=== PATIENT | male | born 1985 | race Caucasian/White ===

== ENCOUNTER 2023-05-06 09:31 | Inpatient (IN) ==
[2023-05-06 10:31] LABS: Appearance Urine Clear (Clear); Bacteria Urine Automated Negative (Negative); Bilirubin Urine Negative (Negative); Blood Urine 1+ (Negative); Color Urine Yellow; Glucose Urine UA 3+ (Negative); Ketones Urine 4+ (Negative); Leukocyte Esterase Urine Negative (Negative); Nitrite Urine Negative (Negative); Protein Urine 2+ (Negative); RBC Urine Automated 0-4 /hpf (0-4); Specific Gravity Urine 1.031 (1.000-1.030); Urobilinogen Urine Negative (Negative); WBC Urine Automated 0 /hpf (0-5)
[2023-05-06 10:31] LABS: Basophils # (auto) 0.04 K/uL (0-0.2); Basophils % (auto) 0.2 %; Hematocrit (blood only) 51.8 % (42.0-52.0); Hemoglobin 18.4 g/dl (14.0-18.0); Immature Granulocytes # (auto) 0.31 K/uL (0.01-0.20); Immature Granulocytes % (auto) 1.5 %; Lymphocytes # (auto) 1.54 K/uL (1.2-3.4); Lymphocytes % (auto) 7.6 %; Mean Corpuscular Hemoglobin 31.2 pg (25.0-34.0); Mean Corpuscular Hgb Conc 35.5 g/dL (32.0-36.0); Mean Corpuscular Volume 87.8 fL (80.0-100.0); Mean Platelet Volume 10.3 fL (9.4-12.4); Monocytes # (auto) 0.83 K/uL (0.11-0.59); Monocytes % (auto) 4.1 %; Neutrophils # (auto) 17.66 K/uL (1.40-6.50); Neutrophils % (auto) 86.6 %; Platelet Count 333 K/uL (130-400); RDW Coefficient of Variation 12.6 % (11.5-14.5); RDW Standard Deviation 40.3 fL (36.4-46.3); White Blood Count 20.38 K/ul (4.8-10.8)
[2023-05-06] MEDS ORDERED: ONDANSETRON INJ 2 MG/ML 2 ML VIAL IV STA (10:37)
[2023-05-06] MEDS ORDERED: SODIUM CHLORIDE 0.9% 1000ML 2,000 ML IV ONE (10:37)
--- NOTE | 2023-05-06 10:43 | Emergency Department Note ---
History of Present Illness General Chief complaint: Vomiting Stated complaint: VOMITING BLOOD Time Seen by Provider: 05/06/23 10:29 Source: patient, RN notes reviewed, old records reviewed and friends (Friend who is at the bedside) Mode of arrival: ambulatory Limitations: no limitations History of Present Illness Maximum Pain Intensity: 8 This patient is a 37-year-old male has history of type 2 diabetes comes in after having vomiting since last night. He started on Ozempic recently got his first shot and he thinks it could be related to that he started vomiting overnight he said initially it looked okay but now it looks like coffee grounds its black when he is a stool as well. He has no lightheadedness or dizziness he has some mild epigastric pain no headache neck pain or stiffness. No fall or trauma no chest pain no fever no back pain. He Checked his blood sugar at home was 101 we checked it here is 221. No new foods no sick contacts. He says he has been unable to eat much. Home Medications Medication Instructions Recorded Confirmed Type blood sugar diagnostic (FreeStyle #100 ea 04/24/23 04/24/23 Rx Test strips) blood-glucose meter #1 ea 04/24/23 04/24/23 Rx lancets 28 gauge (FreeStyle #100 ea 04/24/23 04/24/23 Rx Lancets) metformin 500 mg tablet,extended 500 mg PO BID #60 tabs 04/24/23 05/06/23 Rx release 24 hr atorvastatin 20 mg tablet 20 mg PO QPM #90 tabs 04/25/23 05/06/23 Rx empagliflozin 10 mg tablet 10 mg PO DAILY #30 tabs 04/25/23 05/06/23 Rx (Jardiance) lisinopril 5 mg tablet 5 mg PO DAILY #30 tabs 04/25/23 05/06/23 Rx semaglutide 0.25 mg or 0.5 mg (2 0.25 mg subcut .Sundays05/06/23 05/06/23 History mg/3 mL) subcutaneous pen injector (Ozempic) Allergies Allergy/AdvReac Type Severity Reaction Status Date / Time No Known Allergies Allergy Mild Unverified 05/06/23 13:28 Past Med/Surg History Medical History Psoriasis Type 2 diabetes mellitus Surgical History History of wisdom tooth extraction Family History Denies family history of Ovarian cancer Prostate cancer Myocardial infarction Breast cancer Colorectal cancer Social History Smoking Status: Former smoker Tobacco Type: Cigarettes Age Started Using Tobacco: 16; Age Quit Using Tobacco: 28; packs per day: 1.5; Second Hand Exposure: No; Do You Dip or Chew Tobacco: No; Hx Alcohol Use: Yes Alcohol Intake Frequency: Monthly or Less Hx Substance Use: No Preferred Language: Indonesian Communication Ability: Effective Visual Impairment: No Limitations Hearing Ability: Normal Beliefs That Will Affect Care: None marital status: Current Living Situation: Family Current Living Situation Comment: Lives at home with and one child. 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 Feels Safe at Home: Yes Childhood Exposure to Second-Hand Smoke: Yes caffeine: Yes (Energy drinks - 1 per day.) during the past year weight has: remained stable Dental Care, Regularly: No Physical Activity Frequency: Daily Seatbelt Use: always Sunscreen Use: No Review of Systems A total of 10 systems reviewed and were otherwise negative Physical Exam Vital Signs Vital Signs - 24 hr 05/06/23 09:42 05/06/23 11:21 05/06/23 12:31 Temperature 36.2 C L Temperature Source Temporal Artery Scan Pulse Rate 124 H 105 H Pulse Rate [Apical] 103 H Pulse Rhythm [Apical] Regular Pulse Strength [Apical] Normal Respiratory Rate 20 16 Respiratory Effort / Characteristics Non-Labored Non-Labored Spontaneous Respiratory Depth Normal Normal Respiratory Pattern Regular Blood Pressure 138/81 Blood Pressure [Left Arm] 120/90 Blood Pressure Mean 100 Blood Pressure Mean [Left Arm] 100 Blood Pressure Position [Left Arm] Lying Pulse Oximetry 99 99 Oxygen Delivery Method Room Air Room Air Sepsis Recent Fever Within 48 Hours No Sepsis New/Unexplained Change in Mental Status N/A Sepsis Action Taken by Nursing No Action Required General: Well developed well nourished younger male who appears mildly ill but in no acute distress, breathing comfortably on room air. Normal speech HEENT: Normal cephalic atraumatic. Pupils are equal round and reactive to light. Extraocular movements are intact. Oropharynx is pink with moist mucous membranes. No swelling of the mouth lips or tongue. Neck: Supple with a midline trachea. No meningeal signs or stiffness, no JVD or bruits. No Stridor. Chest: Clear to auscultation bilaterally. No wheezes or rhonchi. No increased work of breathing. Heart: Regular rate and rhythm without murmurs or gallops. Abdomen: Soft, mildly tender in the epigastric area, nondistended without raina ound guarding or rigidity. Extremities: No cyanosis clubbing or edema. No calf tenderness or assymetry Spine/Back. Non tender to palpation. No CVA tenderness Skin: Good turgor without rashes. Neurologic exam: Cranial nerves two through 12 are intact. Motor and sensation are intact and symmetrical throughout. Course Administered Medications Pantoprazole Sodium 40 mg/ (Dextrose) 100 mls @ 20 mls/hr IV Q5H YOGESH Stop: 06/05/23 11:29 Last Admin: 05/06/23 11:41 Dose: 8 mg/hr, 20 mls/hr Documented By: HERMAN Discontinued Medications Sodium Chloride (Nss 1000ml) 2,000 mls @ 999 mls/hr IV .Q2H1M ONE Stop: 05/06/23 12:37 Last Infusion: 05/06/23 12:38 Dose: 0 mls/hr Documented By: Admin: 05/06/23 10:51 Dose: 999 mls/hr Documented By: DARRYN Pantoprazole Sodium (Protonix Bolus/Drip) 0 mls @ 1 mls/hr IV ONE STA Stop: 05/06/23 11:12 Last Admin: 05/06/23 11:26 Dose: 1 mls/hr Documented By: RITO Pantoprazole Sodium 80 mg/ (Dextrose) 120 mls @ 400 mls/hr IV NOW ONE Stop: 05/06/23 11:28 Last Infusion: 05/06/23 11:47 Dose: 0 mls/hr Documented By: Admin: 05/06/23 11:26 Dose: 400 mls/hr Documented By: RITO Lactated Ringer's (Lr) 1,000 mls @ 999 mls/hr IV .Q1H1M ONE Stop: 05/06/23 14:33 Last Admin: 05/06/23 14:17 Dose: 999 mls/hr Documented By: HERMAN Ondansetron HCl (Ondansetron Inj 2 Mg/Ml 2 Ml Vial) 4 mg IV NOW STA Stop: 05/06/23 10:38 Last Admin: 05/06/23 10:51 Dose: 4 mg Documented By: DARRYN Critical Care Time Critical Care Time: Yes Total Critical Care Time: 40 Due to the patient's need for frequent reassessment multiple IV medications and fluids, multiple metabolic abnormalities, consultations, I have personally spent greater than 40 minutes of critical care time in the direct management of this patient. This includes bedside care, interpretation of diagnostic studies, and testing, discussion with consultants, patient, and family members, and other required patient management activities. This 40 minutes is in excess of all separately billable procedures. Medical Decision Making Differential Diagnosis Dehydration, medication side effect, diabetic complications/emergency/DKA, GI bleed, gastritis, electrolyte or metabolic abnormality, infection, sepsis, cardiac disease, foodborne illness, viral illness Medical Records Attestation: I reviewed the patient's medical records. Home Medications Current Medication List: was personally reviewed by me Laboratory Data Attestation: I reviewed the patient's lab results. 05/06/23 10:00 05/06/23 10:00 Lab Results 05/06/23 05/06/23 05/06/23 Range/Units 10:00 10:00 10:06 WBC 20.38 H (4.8-10.8) K/ul RBC 5.90 (4.70-6.10) M/uL Hgb 18.4 H (14.0-18.0) g/dl Hct 51.8 (42.0-52.0) % MCV 87.8 (80.0-100.0) fL MCH 31.2 (25.0-34.0) pg MCHC 35.5 (32.0-36.0) g/dL RDW Std Deviation 40.3 (36.4-46.3) fL RDW Coeff of Queenie 12.6 (11.5-14.5) % Plt Count 333 (130-400) K/uL MPV 10.3 (9.4-12.4) fL Immature Gran % (Auto) 1.5 % Neut % (Auto) 86.6 % Lymph % (Auto) 7.6 % Perkins % (Auto) 4.1 % Eos % (Auto) 0.0 % Baso % (Auto) 0.2 % Neut # (Auto) 17.66 H (1.40-6.50) K/uL Lymph # (Auto) 1.54 (1.2-3.4) K/uL Perkins # (Auto) 0.83 H (0.11-0.59) K/uL Eos # (Auto) 0.00 (0-0.50) K/uL Baso # (Auto) 0.04 (0-0.2) K/uL Immature Gran # (Auto) 0.31 H (0.01-0.20) K/uL VBG pH (7.36-7.41) VBG pCO2 (38-50) mmHg VBG pO2 mmHg VBG HCO3 mmol/L VBG O2 Saturation % VBG Base Excess mEq/L Sodium TNP Potassium TNP Chloride 93 L (98-107) mmol/L Carbon Dioxide 11 L (21-32) mmol/L Anion Gap TNP BUN 36 H (6-23) mg/dl Creatinine 1.71 H (0.6-1.4) mg/dl Est Cr Clr Drug Dosing 54.1 ml/min Est GFR ( Amer) 57.2 ml/min Est GFR (Non-Af Amer) 49.3 ml/min BUN/Creatinine Ratio 21.1 H (10-20) Glucose 272 H (70-99(Fasting)) mg/dl POC Glucose 277 H (70-99) mg/dl Lactate (0.4-2.0) mmol/L Calcium 9.6 (8.6-10.3) mg/dl Magnesium (1.7-2.4) mg/dl Total Bilirubin 0.7 (0.2-1.0) mg/dl AST TNP ALT 43 (7-52) U/L Alkaline Phosphatase 95 (34-104) U/L Troponin I High Sens (0-20) pg/ml Total Protein 9.6 H (6.0-8.3) gm/dl Albumin 5.3 H (3.4-5.0) gm/dl Globulin 4.3 H (2.5-4.0) gm/dl Albumin/Globulin Ratio 1.2 (0.9-2) Lipase 62 (11-82) U/L Urine Color Urine Appearance (Clear) Urine pH (4.5-7.5) Ur Specific [place] (1.000-1.030) Urine Protein (Negative) Urine Glucose (UA) (Negative) Urine Ketones (Negative) Urine Blood (Negative) Urine Nitrite (Negative) Urine Bilirubin (Negative) Urine Urobilinogen (Negative) Ur Leukocyte Esterase (Negative) Urine WBC (Auto) (0-5) /hpf Urine RBC (Auto) (0-4) /hpf U Hyaline Cast (Auto) (0-5) /lpf U Epithel Cells (Auto) (0-5) /lpf Urine Bacteria (Auto) (Negative) SARS-CoV-2, RNA, NAAT (NEGATIVE) Blood Type Antibody Screen 05/06/23 05/06/23 05/06/23 Range/Units 11:31 11:31 11:31 WBC (4.8-10.8) K/ul RBC (4.70-6.10) M/uL Hgb (14.0-18.0) g/dl Hct (42.0-52.0) % MCV (80.0-100.0) fL MCH (25.0-34.0) pg MCHC (32.0-36.0) g/dL RDW Std Deviation (36.4-46.3) fL RDW Coeff of Queenie (11.5-14.5) % Plt Count (130-400) K/uL MPV (9.4-12.4) fL Immature Gran % (Auto) % Neut % (Auto) % Lymph % (Auto) % Perkins % (Auto) % Eos % (Auto) % Baso % (Auto) % Neut # (Auto) (1.40-6.50) K/uL Lymph # (Auto) (1.2-3.4) K/uL Perkins # (Auto) (0.11-0.59) K/uL Eos # (Auto) (0-0.50) K/uL Baso # (Auto) (0-0.2) K/uL Immature Gran # (Auto) (0.01-0.20) K/uL VBG pH (7.36-7.41) VBG pCO2 (38-50) mmHg VBG pO2 mmHg VBG HCO3 mmol/L VBG O2 Saturation % VBG Base Excess mEq/L Sodium 132 L Potassium 4.4 Chloride (98-107) mmol/L Carbon Dioxide (21-32) mmol/L Anion Gap BUN (6-23) mg/dl Creatinine (0.6-1.4) mg/dl Est Cr Clr Drug Dosing ml/min Est GFR ( Amer) ml/min Est GFR (Non-Af Amer) ml/min BUN/Creatinine Ratio (10-20) Glucose (70-99(Fasting)) mg/dl POC Glucose (70-99) mg/dl Lactate (0.4-2.0) mmol/L Calcium (8.6-10.3) mg/dl Magnesium (1.7-2.4) mg/dl Total Bilirubin (0.2-1.0) mg/dl AST 18 ALT (7-52) U/L Alkaline Phosphatase (34-104) U/L Troponin I High Sens 5.6 (0-20) pg/ml Total Protein (6.0-8.3) gm/dl Albumin (3.4-5.0) gm/dl Globulin (2.5-4.0) gm/dl Albumin/Globulin Ratio (0.9-2) Lipase (11-82) U/L Urine Color Urine Appearance (Clear) Urine pH (4.5-7.5) Ur Specific [place] (1.000-1.030) Urine Protein (Negative) Urine Glucose (UA) (Negative) Urine Ketones (Negative) Urine Blood (Negative) Urine Nitrite (Negative) Urine Bilirubin (Negative) Urine Urobilinogen (Negative) Ur Leukocyte Esterase (Negative) Urine WBC (Auto) (0-5) /hpf Urine RBC (Auto) (0-4) /hpf U Hyaline Cast (Auto) (0-5) /lpf U Epithel Cells (Auto) (0-5) /lpf Urine Bacteria (Auto) (Negative) SARS-CoV-2, RNA, NAAT (NEGATIVE) Blood Type A Positive Antibody Screen NEGATIVE 05/06/23 05/06/23 05/06/23 Range/Units 14:05 14:05 14:05 WBC (4.8-10.8) K/ul RBC (4.70-6.10) M/uL Hgb (14.0-18.0) g/dl Hct (42.0-52.0) % MCV (80.0-100.0) fL MCH (25.0-34.0) pg MCHC (32.0-36.0) g/dL RDW Std Deviation (36.4-46.3) fL RDW Coeff of Queenie (11.5-14.5) % Plt Count (130-400) K/uL MPV (9.4-12.4) fL Immature Gran % (Auto) % Neut % (Auto) % Lymph % (Auto) % Perkins % (Auto) % Eos % (Auto) % Baso % (Auto) % Neut # (Auto) (1.40-6.50) K/uL Lymph # (Auto) (1.2-3.4) K/uL Perkins # (Auto) (0.11-0.59) K/uL Eos # (Auto) (0-0.50) K/uL Baso # (Auto) (0-0.2) K/uL Immature Gran # (Auto) (0.01-0.20) K/uL VBG pH 7.18 L (7.36-7.41) VBG pCO2 38 (38-50) mmHg VBG pO2 29 mmHg VBG HCO3 14 mmol/L VBG O2 Saturation < 60.0 % VBG Base Excess -13.4 mEq/L Sodium 132 L Potassium 4.7 Chloride 103 (98-107) mmol/L Carbon Dioxide 13 L (21-32) mmol/L Anion Gap 16 H BUN 34 H (6-23) mg/dl Creatinine 1.24 D (0.6-1.4) mg/dl Est Cr Clr Drug Dosing 74.6 ml/min Est GFR ( Amer) 84.3 ml/min Est GFR (Non-Af Amer) 72.8 ml/min BUN/Creatinine Ratio 27.4 H (10-20) Glucose 182 H (70-99(Fasting)) mg/dl POC Glucose (70-99) mg/dl Lactate 2.1 H* (0.4-2.0) mmol/L Calcium 8.4 L (8.6-10.3) mg/dl Magnesium 2.2 (1.7-2.4) mg/dl Total Bilirubin (0.2-1.0) mg/dl AST ALT (7-52) U/L Alkaline Phosphatase (34-104) U/L Troponin I High Sens (0-20) pg/ml Total Protein (6.0-8.3) gm/dl Albumin (3.4-5.0) gm/dl Globulin (2.5-4.0) gm/dl Albumin/Globulin Ratio (0.9-2) Lipase (11-82) U/L Urine Color Urine Appearance (Clear) Urine pH (4.5-7.5) Ur Specific [place] (1.000-1.030) Urine Protein (Negative) Urine Glucose (UA) (Negative) Urine Ketones (Negative) Urine Blood (Negative) Urine Nitrite (Negative) Urine Bilirubin (Negative) Urine Urobilinogen (Negative) Ur Leukocyte Esterase (Negative) Urine WBC (Auto) (0-5) /hpf Urine RBC (Auto) (0-4) /hpf U Hyaline Cast (Auto) (0-5) /lpf U Epithel Cells (Auto) (0-5) /lpf Urine Bacteria (Auto) (Negative) SARS-CoV-2, RNA, NAAT (NEGATIVE) Blood Type Antibody Screen 05/06/23 05/06/23 Range/Units Unknown Unknown WBC (4.8-10.8) K/ul RBC (4.70-6.10) M/uL Hgb (14.0-18.0) g/dl Hct (42.0-52.0) % MCV (80.0-100.0) fL MCH (25.0-34.0) pg MCHC (32.0-36.0) g/dL RDW Std Deviation (36.4-46.3) fL RDW Coeff of Queenie (11.5-14.5) % Plt Count (130-400) K/uL MPV (9.4-12.4) fL Immature Gran % (Auto) % Neut % (Auto) % Lymph % (Auto) % [place] % (Auto) % Eos % (Auto) % Baso % (Auto) % Neut # (Auto) (1.40-6.50) K/uL Lymph # (Auto) (1.2-3.4) K/uL [place] # (Auto) (0.11-0.59) K/uL Eos # (Auto) (0-0.50) K/uL Baso # (Auto) (0-0.2) K/uL Immature Gran # (Auto) (0.01-0.20) K/uL VBG pH (7.36-7.41) VBG pCO2 (38-50) mmHg VBG pO2 mmHg VBG HCO3 mmol/L VBG O2 Saturation % VBG Base Excess mEq/L Sodium Potassium Chloride (98-107) mmol/L Carbon Dioxide (21-32) mmol/L Anion Gap BUN (6-23) mg/dl Creatinine (0.6-1.4) mg/dl Est Cr Clr Drug Dosing ml/min Est GFR ( Amer) ml/min Est GFR (Non-Af Amer) ml/min BUN/Creatinine Ratio (10-20) Glucose (70-99(Fasting)) mg/dl POC Glucose (70-99) mg/dl Lactate (0.4-2.0) mmol/L Calcium (8.6-10.3) mg/dl Magnesium (1.7-2.4) mg/dl Total Bilirubin (0.2-1.0) mg/dl AST ALT (7-52) U/L Alkaline Phosphatase (34-104) U/L Troponin I High Sens (0-20) pg/ml Total Protein (6.0-8.3) gm/dl Albumin (3.4-5.0) gm/dl Globulin (2.5-4.0) gm/dl Albumin/Globulin Ratio (0.9-2) Lipase (11-82) U/L Urine Color Yellow Urine Appearance Clear (Clear) Urine pH 5.0 (4.5-7.5) Ur Specific [place] 1.031 H (1.000-1.030) Urine Protein 2+ H (Negative) Urine Glucose (UA) 3+ H (Negative) Urine Ketones 4+ H (Negative) Urine Blood 1+ H (Negative) Urine Nitrite Negative (Negative) Urine Bilirubin Negative (Negative) Urine Urobilinogen Negative (Negative) Ur Leukocyte Esterase Negative (Negative) Urine WBC (Auto) 0 (0-5) /hpf Urine RBC (Auto) 0-4 (0-4) /hpf U Hyaline Cast (Auto) 1-5 (0-5) /lpf U Epithel Cells (Auto) 5-10 H (0-5) /lpf Urine Bacteria (Auto) Negative (Negative) SARS-CoV-2, RNA, NAAT NEGATIVE (NEGATIVE) Blood Type Antibody Screen Imaging Data Attestation: I personally reviewed and interpreted this imaging study as follows: My Impression: Chest x-rayno acute infiltrate, failure, pneumothorax. No free air CT of the abdomen pelvisno obstruction or free air. Radiologist's Impression: Chest X-Ray 05/06/23 10:38 XR chest 1V portable HISTORY: epigastric pain COMPARISON: None. FINDINGS: The lungs are clear. Cardiac silhouette is normal in size. No pleural effusions. No pneumothorax. IMPRESSION: No acute process. ACT 112: Negative or not required by law. Electronically signed by: Catalino Bella M.D. 05/06/2023 11:00 AM Abdomen/Pelvis CT 05/06/23 11:[address] WITHOUT CONTRAST CT DOSE: 1072.37 mGy.cm HISTORY: emesis TECHNIQUE: Multiaxial CT images of the abdomen and pelvis were performed without contrast. A dose lowering technique was utilized adhering to the principles of ALARA. COMPARISON STUDY: None. FINDINGS: The lung bases are clear. No pneumoperitoneum. No pneumatosis. No acute fractures identified. There is mild to moderate circumferential thickening of the distal esophagus with mild paraesophageal edema. This suggests a nonspecific esophagitis. No pneumomediastinum identified. Hepatic steatosis. The gallbladder, spleen, adrenal glands, pancreas, and kidneys unremarkable. No hydronephrosis. Normal caliber abdominal aorta. No retroperitoneal lymphadenopathy. No pelvic lymphadenopathy or pelvic free fluid. Normal bladder. Suboptimal evaluation for bowel pathology due to the lack of intravenous and oral contrast. However, there is no definite thickening of the large and small bowel. No evidence for a bowel obstruction. Normal appendix. There is a linear density 1 cm density at the second portion of the duodenum best seen on images 111 through 116. This is indeterminate and could represent ingested contents or possibly a small linear metallic density. IMPRESSION: 1. [id number] circumferential thickening of the distal esophagus with mild paraesophageal edema. This suggests a nonspecific esophagitis. No extraluminal gas to suggest a perforation. 2. Hepatic steatosis. 3. No evidence for a bowel obstruction. 4. Normal appendix. 5. There is a linear density 1 cm density at the second portion of the duodenum as described above. This is indeterminate and could represent ingested contents or possibly a small linear metallic density. ACT 112: Negative or not required by law. Electronically signed by: Catalino Bella M.D. 05/06/2023 12:58 PM ECG Data Attestation: I personally reviewed and interpreted this ECG as follows: Indication: + vomiting Rate (beats per minute): 113 Rhythm: + sinus tachycardia ECG Intervals/blocks: + Normal QRS, + Normal QT and + Normal [place] ECG [place]: + Normal ECG ST segments: + Normal ST segments ECG Findings: no PACs or no PVCs Comparison ECG Date: no prior available MDM Narrative This patient is a type II diabetic comes in after an vomiting and diarrhea. His blood sugar was was 221 here so I do not think is likely acute diabetic emergency. He was started on Ozempic which may be causing his symptoms. IV a ccess was established and he was hydrated with 2 L IV normal saline bolus given Zofran 4 mg IV in the meantime blood work was obtained his initial hemoglobin is 18 so he is not low this could also be somewhat elevated due to dehydration. His white count is also elevated although he has no fever. I also gave him Protonix IV and bolus. His labs show a low CO2 and increased renal functions. His blood sugar is not significantly elevated however. Is possible there is a DKA component however I think it is mostly just dehydration. Has been retching. I suspect that he the Ozempic made him sick and then he had vomiting and got dehydrated. I did do a CAT scan given his elevated white count and he does have some irritation of his esophagus but no extraluminal air. With the IV fluids and the medications he seems to be doing quite a bit better. His abdomen remains benign without peritonitis. EKG does not show any ischemic changes I do not think this is likely cardiac. His hemoglobin is stable so far but he has been typed and crossed in the event he were to drop his hemoglobin or needed transfusion. I did consult Dr. Jones to see the patient in the ER for these measures and admission and further IV hydration and medications Continuous cardiac monitoring: An order was placed in EMR for continuous cardiac monitoring: Upon my evaluation patient was noted to be sinus tachycardia with a rate of 100 Impression & Plan Acute dehydration, Type 2 diabetes mellitus, Esophagitis, Acute upper GI bleed, Metabolic acidosis, Nausea vomiting and diarrhea, Lab test negative for COVID-19 virus Discharge Plan Visit Data Chief Complaint: Vomiting Stated Complaint: VOMITING BLOOD ED Provider: Nirmal Lau Discharge Problem: Acute dehydration, Type 2 diabetes mellitus, Esophagitis, Acute upper GI bleed, Metabolic acidosis, Nausea vomiting and diarrhea, Lab test negative for COVID-19 virus Discharge Instructions Interventions: ED Discharge Assessment Last Done: 05/06/23 14:57 Forms Stand Alone Forms: My [facility] Prescriptions Prescriptions: No Action Jardiance 10 mg tablet 10 mg PO DAILY Qty: 30 2RF atorvastatin 20 mg tablet 20 mg PO QPM Qty: 90 2RF lisinopril 5 mg tablet 5 mg PO DAILY Qty: 30 2RF metformin 500 mg tablet extended release 24 hr 500 mg PO BID Qty: 60 2RF (DME) lancets [FreeStyle Lancets] 28 gauge misc See Rx Instructions .ROUTE Qty: 100 0RF Rx Instructions: As directed (DME) blood-glucose meter Kit See Rx Instructions .ROUTE .MEDSUPPLY Qty: 1 0RF Rx Instructions: As directed daily and PRN (DME) FreeStyle Test Strip See Rx Instructions .Route Qty: 100 5RF Rx Instructions: As directed daily and PRN Ozempic 0.25 mg or 0.5 mg (2 mg/3 mL) pen injector 0.25 mg subcut .SUNDAYS Rx Instructions: 0.25 mg subcutaneously once every 7 days at any time of day. After 4 weeks increase to 0.5 mg subcutaneously once weekly. Referrals Referrals: Lance Shaikh CRNP [Primary Care Provider] -
[2023-05-06 10:57] LABS: Alanine Aminotransferase 43 U/L (7-52); Albumin Globulin Ratio 1.2 (0.9-2); Albumin Level 5.3 gm/dl (3.4-5.0); Alkaline Phosphatase 95 U/L (34-104); BUN Creatinine Ratio 21.1 (10-20); Bilirubin,Total 0.7 mg/dl (0.2-1.0); Blood Urea Nitrogen 36 mg/dl (6-23); Calcium 9.6 mg/dl (8.6-10.3); Carbon Dioxide 11 mmol/L (21-32); Chloride 93 mmol/L (98-107); Creatinine Clr Calc Pharmacy 54.1 ml/min; Est GFR (African American) 57.2 ml/min; Est GFR (Non-African American) 49.3 ml/min; Globulin 4.3 gm/dl (2.5-4.0); Glucose 272 mg/dl (70-99(Fasting)); Lipase 62 U/L (11-82); Total Protein 9.6 gm/dl (6.0-8.3)
--- NOTE | 2023-05-06 11:01 | XRay Report ---
XR chest 1V portable HISTORY: epigastric pain COMPARISON: None. FINDINGS: The lungs are clear. Cardiac silhouette is normal in size. No pleural effusions. No pneumot horax. IMPRESSION: No acute process. ACT 112: Negative or not required by law. Electronically signed by: Catalino Bella M.D. 05/06/2023 11:00 AM
[2023-05-06] MEDS ORDERED: PANTOPRAZOLE BOLUS/DRIP 1 EACH IV STA (11:11)
[2023-05-06] MEDS ORDERED: PANTOprazole 80 MG in DEXTROSE 5% 100 ML IV ONE (11:11)
[2023-05-06] MEDS: PANTOprazole 40 MG in DEXTROSE 5% 100 ML IV SCH ×3 (11:41→22:58)
[2023-05-06 12:01] LABS: Potassium 4.4 mmol/L (3.5-5.1)
--- NOTE | 2023-05-06 13:01 | CT Scan Report ---
ABDOMEN AND PELVIS CT WITHOUT CONTRAST CT DOSE: 1072.37 mGy.cm HISTORY: emesis TECHNIQUE: Multiaxial CT images of the abdomen and pelvis were performed without contrast. A dose lo wering technique was utilized adhering to the principles of ALARA. COMPARISON STUDY: None. FINDINGS: The lung bases are clear. No pneumoperitoneum. No pneumatosis. No acute fractures identifie d. There is mild to moderate circumferential thickening of the distal esophagus with mild paraesophag eal edema. This suggests a nonspecific esophagitis. No pneumomediastinum identified. Hepatic steatosi s. The gallbladder, spleen, adrenal glands, pancreas, and kidneys unremarkable. No hydronephrosis. No rmal caliber abdominal aorta. No retroperitoneal lymphadenopathy. No pelvic lymphadenopathy or pelvic free fluid. Normal bladder. Suboptimal evaluation for bowel pathology due to the lack of intravenous and oral contrast. However, there is no definite thickening of the large and small bowel. No evidenc e for a bowel obstruction. Normal appendix. There is a linear density 1 cm density at the second port ion of the duodenum best seen on images 111 through 116. This is indeterminate and could represent in gested contents or possibly a small linear metallic density. IMPRESSION: 1. [id number] circumferential thickening of the distal esophagus with mild paraesophageal edema . This suggests a nonspecific esophagitis. No extraluminal gas to suggest a perforation. 2. Hepatic steatosis. 3. No evidence for a bowel obstruction. 4. Normal appendix. 5. There is a linear density 1 cm density at the second portion of the duodenum as described above. T his is indeterminate and could represent ingested contents or possibly a small linear metallic densit y. ACT 112: Negative or not required by law. Electronically signed by: Catalino Bella M.D. 05/06/2023 12:58 PM
--- NOTE | 2023-05-06 13:32 | History & Physical Report ---
Date of Service May 06, 2023 Assessment & Plan (1) Diabetic ketoacidosis: Plan: Secondary to Jardiance +/- starvation ketosis, likely did not cause but making nausea and vomiting worse Initial anion gap (calculated with repeat labs) 28, albumin corrected 24.8, Bicarb 11 NSS 2L bolus given in ER, will give additional 1L LR now with repeat labs Start insulin IV drip with DKA aim 150-250, K 4.4, Start D5 with IV fluids once glucose < 250. Monitor BMP/Mg/PO/venous ph q4h (2) Nausea and vomiting: Plan: Suspect somewhat secondary to Ozempic initially although start multiple new medications at the same time. (3) Coffee ground emesis: Plan: Continue to monitor Hgb Iv pantoprazole 80mg bolus and drip (4) Esophagitis: Plan: IV pantoprazole as above (5) Psoriasis: (6) Hypertension: Plan: Stop lisinopril Plan VTE Prophylaxis - low risk Diet - NPO Disposition - admit to PCU Admission and Anticipated Discharge Date Admission Date: May 06, 2023 History of Present Illness Chief Complaint: Nausea, vomiting Primary Care Provider: BRODIE Head Valentino Vazquez is a 37 year old male who presents to the ER with nausea and vomiting. He reports falling off the wagon regarding his diabetes and general medical treatments. HbA1C 10.6 on April 24. He was previous diagnosed with diabetes and treated with metformin. Last weekend he started back on all his current medications at the same time. He took Ozempic for the first time on Monday. On Monday he started having nausea and vomiting and hasn't been able to keep much else down since then. Now having coffee ground vomiting and bile therefore decided to come to the ER today. He denies any abdominal pain or change in bowel habits. He continued to take Farxiga up until today. Allergies Allergy/AdvReac Type Severity Reaction Status Date / Time No Known Allergies Allergy Mild Unverified 05/06/23 13:28 Home Medications Medication Instructions Recorded Confirmed Type blood sugar diagnostic (FreeStyle #100 ea 04/24/23 04/24/23 Rx Test strips) blood-glucose meter #1 ea 04/24/23 04/24/23 Rx lancets 28 gauge (FreeStyle #100 ea 06/19/23 06/19/23 Rx Lancets) metformin 500 mg tablet,extended 500 mg PO BID #60 tabs 04/24/23 05/06/23 Rx release 24 hr atorvastatin 20 mg tablet 20 mg PO QPM #90 tabs 04/25/23 05/06/23 Rx empagliflozin 10 mg tablet 10 mg PO DAILY #30 tabs 04/25/23 05/06/23 Rx (Jardiance) lisinopril 5 mg tablet 5 mg PO DAILY #30 tabs 04/25/23 05/06/23 Rx semaglutide 0.25 mg or 0.5 mg (2 0.25 mg subcut .Sundays05/06/23 05/06/23 History mg/3 mL) subcutaneous pen injector (Ozempic) Past Med/Surg History Medical History (Updated 05/07/23 @ 07:21 by Troy Jones MD) Hypertension Psoriasis Type 2 diabetes mellitus Surgical History History of wisdom tooth extraction Family History Denies family history of Ovarian cancer Prostate cancer Myocardial infarction Breast cancer Colorectal cancer Social History Smoking Status: Former smoker Tobacco Type: Cigarettes Age Started Using Tobacco: 16; Age Quit Using Tobacco: 28; packs per day: 1.5; Second Hand Exposure: No; Do You Dip or Chew Tobacco: No; Tobacco Cessation Education Requested by Patient: No Hx Alcohol Use: No Hx Substance Use: No Preferred Language: Bengali Communication Ability: Effective Visual Impairment: No Limitations Hearing Ability: Normal Car [place]ter Required: No Beliefs That Will Affect Care: None marital status: Current Living Situation: Spouse Current Living Situation Comment: Lives at home with and one child. 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 Feels Safe at Home: Yes Safety Concerns: Feels Safe At This Time Childhood Exposure to Second-Hand Smoke: Yes caffeine: Yes (Energy drinks - 1 per day.) during the past year weight has: remained stable Dental Care, Regularly: No Physical Activity Frequency: Daily Seatbelt Use: always Sunscreen Use: No Assistive Devices: None Review of Systems Review of Systems: All systems reviewed & are unremarkable except as noted in HPI & below Physical Exam Constitutional: well developed, well nourished and + acute distress (Nausea) Eyes: PERRL, conjunctivae normal, anicteric sclerae Respiratory: normal respiratory effort, lungs clear to auscultation Cardiovascular: Rate/Rhythm: regular rhythm and + tachycardic Heart Sounds: no murmur Extremities: normal capillary refill; no calf tenderness and no pedal edema Gastrointestinal (Abdomen): normal bowel sounds, soft, nontender, no hepatosplenomegaly Musculoskeletal: no cyanosis or clubbing, extremities motor strength 5/5 Skin: no rashes, warm and dry Neurologic: moves all extremities and awake; not confused Psychiatric: A+Ox3, euthymic affect Genitourinary: no CVA tenderness Results & Data Results & Data Vital Signs (Past 12 Hours) Vital Signs Temp Pulse Pulse Resp BP BP Pulse Ox 05/06/23 12:31 103 H 16 120/90 99 05/06/23 11:21 105 H 05/06/23 09:42 36.2 C L 124 H 20 138/81 99 O2 Del Method 05/06/23 12:31 Room Air 05/06/23 11:21 05/06/23 09:42 Room Air Laboratory Results Abnormal lab results 05/06/23 05/06/23 05/06/23 Range/Units 10:00 10:00 10:06 WBC 20.38 H (4.8-10.8) K/ul Hgb 18.4 H (14.0-18.0) g/dl Neut # (Auto) 17.66 H (1.40-6.50) K/uL [place] # (Auto) 0.83 H (0.11-0.59) K/uL Immature Gran # (Auto) 0.31 H (0.01-0.20) K/uL Sodium (136-145) mmol/L Chloride 93 L (98-107) mmol/L Carbon Dioxide 11 L (21-32) mmol/L BUN 36 H (6-23) mg/dl Creatinine 1.71 H (0.6-1.4) mg/dl BUN/Creatinine Ratio 21.1 H (10-20) Glucose 272 H (70-99(Fasting)) mg/dl POC Glucose 277 H (70-99) mg/dl Total Protein 9.6 H (6.0-8.3) gm/dl Albumin 5.3 H (3.4-5.0) gm/dl Globulin 4.3 H (2.5-4.0) gm/dl Ur Specific [place] (1.000-1.030) Urine Protein (Negative) Urine Glucose (UA) (Negative) Urine Ketones (Negative) Urine Blood (Negative) U Epithel Cells (Auto) (0-5) /lpf 05/06/23 05/06/23 Range/Units 11:31 Unknown WBC (4.8-10.8) K/ul Hgb (14.0-18.0) g/dl Neut # (Auto) (1.40-6.50) K/uL [place] # (Auto) (0.11-0.59) K/uL Immature Gran # (Auto) (0.01-0.20) K/uL Sodium 132 L (136-145) mmol/L Chloride (98-107) mmol/L Carbon Dioxide (21-32) mmol/L BUN (6-23) mg/dl Creatinine (0.6-1.4) mg/dl BUN/Creatinine Ratio (10-20) Glucose (70-99(Fasting)) mg/dl POC Glucose (70-99) mg/dl Total Protein (6.0-8.3) gm/dl Albumin (3.4-5.0) gm/dl Globulin (2.5-4.0) gm/dl Ur Specific [place] 1.031 H (1.000-1.030) Urine Protein 2+ H (Negative) Urine Glucose (UA) 3+ H (Negative) Urine Ketones 4+ H (Negative) Urine Blood 1+ H (Negative) U Epithel Cells (Auto) 5-10 H (0-5) /lpf Diagnostic Findings XR chest 1V portable HISTORY: epigastric pain COMPARISON: None. FINDINGS: The lungs are clear. Cardiac silhouette is normal in size. No pleural effusions. No pneumothorax. IMPRESSION: No acute process. ABDOMEN AND PELVIS CT WITHOUT CONTRAST CT DOSE: 1072.37 mGy.cm HISTORY: emesis TECHNIQUE: Multiaxial CT images of the abdomen and pelvis were performed without contrast. A dose lowering technique was utilized adhering to the principles of ALARA. COMPARISON STUDY: None. FINDINGS: The lung bases are clear. No pneumoperitoneum. No pneumatosis. No acute fractures identified. There is mild to moderate circumferential thickening of the distal esophagus with mild paraesophageal edema. This suggests a nonspecific esophagitis. No pneumomediastinum identified. Hepatic steatosis. The gallbladder, spleen, adrenal glands, pancreas, and kidneys unremarkable. No hydronephrosis. Normal caliber abdominal aorta. No retroperitoneal lymphadenopathy. No pelvic lymphadenopathy or pelvic free fluid. Normal bladder. Suboptimal evaluation for bowel pathology due to the lack of intravenous and oral contrast. However, there is no definite thickening of the large and small bowel. No evidence for a bowel obstruction. Normal appendix. There is a linear density 1 cm density at the second portion of the duodenum best seen on images 111 through 116. This is indeterminate and could represent ingested contents or possibly a small linear metallic density. IMPRESSION: 1. Bcmn-by-mtwllniz circumferential thickening of the distal esophagus with mild paraesophageal edema. This suggests a nonspecific esophagitis. No extraluminal gas to suggest a perforation. 2. Hepatic steatosis. 3. No evidence for a bowel obstruction. 4. Normal appendix. 5. There is a linear density 1 cm density at the second portion of the duodenum as described above. This is indeterminate and could represent ingested contents or possibly a small linear metallic density. Medications Administered ER Medications Given: NSS 2L bolus Ondansetron 4mg IV Pantoprazole 80mg bolus bolus and drip ECG Rate (beats per minute): 113 Rhythm: sinus tachycardia Findings: no acute ischemic change Comparison ECG Date: no prior available Code Status & VTE Plan Code Status Full VTE Prophylaxis Plan VTE Prophylaxis will be ordered: Yes Critical Care Time Critical Care Time: Yes Total Critical Care Time: 35 PG Care Time/CCT Total # of Minutes Spent Total Time Spent with Patient: Total time spent is greater than 50% in coordination of care (as documented) at patient's floor/unit and/or counseling patient: Critical Care Time: Yes Total Critical Care Time: 35 Coding Level of Care Code 91097 INT INP/OBS CARE 3/75MIN Diagnoses Diabetic ketoacidosis E11.10 Nausea and vomiting R11.2 Coffee ground emesis K92.0 Esophagitis K20.90 Psoriasis L40.9 Hypertension I10 Additional Codes Critical Care Time - Critical Care Time: Yes ([id number])
[2023-05-06] MEDS ORDERED: LACTATED RINGER'S 1,000 ML IV ONE (13:33)
[2023-05-06] MEDS ORDERED: PHARMACY GLYCEMIC MGMT CONSULT PRN (14:14)
[2023-05-06] MEDS ORDERED: STAT IV Infusion **Titration per Protocol STA (14:14)
[2023-05-06] MEDS ORDERED: DKA GOAL RANGE 150-250 mg/dl ONE (14:14)
[2023-05-06 14:22] LABS: Base Excess VBG -13.4 mEq/L; HCO3 VBG 14 mmol/L; Oxygen Saturation VBG < 60.0 %; PCO2 VBG 38 mmHg (38-50); PO2 VBG 29 mmHg; pH VBG 7.18 (7.36-7.41)
[2023-05-06 14:39] LABS: BUN Creatinine Ratio 27.4 (10-20); Calcium 8.4 mg/dl (8.6-10.3); Creatinine Clr Calc Pharmacy 74.6 ml/min; Est GFR (African American) 84.3 ml/min; Est GFR (Non-African American) 72.8 ml/min; Magnesium 2.2 mg/dl (1.7-2.4); Potassium 4.7 mmol/L (3.5-5.1)
[2023-05-06] MEDS ORDERED: INSULIN REGULAR 250 UNITS in SODIUM CHLORIDE 0.9% 247.5 ML IV SCH (15:00)
[2023-05-06] MEDS ORDERED: INSULIN HUMAN REGULAR PER UNIT 8 UNITS in SYRINGE 7.92 ML IV ONE (15:00)
[2023-05-06] MEDS ORDERED: PENDING D5 1/2NS+20mEq KCL IVF SCH (16:00)
[2023-05-06] MEDS ORDERED: PENDING 1/2NSS+20mEq KCL IVF SCH (16:00)
[2023-05-06] MEDS: D5W AND 1/2NSS + 20MEQ KCL 20 MEQ/1,000 ML BAG IV SCH ×2 (16:14→21:32)
[2023-05-06] MEDS: INSULIN ASPART PER UNIT CHARGE SC SCH ×2 (16:34→20:48)
[2023-05-06 18:38] LABS: BUN Creatinine Ratio 25.6 (10-20); Calcium 8.4 mg/dl (8.6-10.3); Creatinine Clr Calc Pharmacy 79.1 ml/min; Est GFR (African American) 90.5 ml/min; Est GFR (Non-African American) 78.1 ml/min; Magnesium 2.3 mg/dl (1.7-2.4); Phosphorus 2.7 mg/dl (2.5-4.9); Potassium 4.5 mmol/L (3.5-5.1)
[2023-05-06] MEDS: ONDANSETRON INJ 2 MG/ML 2 ML VIAL IV PRN (20:00)
--- NOTE | 2023-05-06 21:36 | Electrocardiogram Report ---
Test Reason : Blood Pressure : / mmHG Vent. Rate : 113 BPM Atrial Rate : 113 BPM P-R Int : 124 ms QRS Dur : 092 ms QT Int : 344 ms P-R-T Axes : 039 016 019 degrees QTc Int : 472 ms Sinus tachycardia Possible Left atrial enlargement Cannot rule out Inferior infarct , age undetermined Cannot rule out Anterior infarct , age undetermined Abnormal ECG No previous ECGs available Confirmed by Jeronimo Zamudio ([id number]) on 05/06/2023 9:35:43 PM Referred By: Provider Outside Confirmed By:Jeronimo Zamudio
[2023-05-06] MEDS ORDERED: GLUCOSE 40% GEL 15 GM TUBE PO PRN (22:15)
[2023-05-06] MEDS ORDERED: CARBOHYDRATES FOR HYPOGLYCEMIA PO PRN (22:15)
[2023-05-06] MEDS ORDERED: GLUCAGON FOR INJ 1 MG VIAL IM PRN (22:15)
[2023-05-06] MEDS ORDERED: DEXTROSE 50% 50 ML SYRINGE IV PRN (22:15)
[2023-05-06] MEDS ORDERED: GLUCOSE 10 TAB/TUBE PO PRN (22:15)
[2023-05-06 22:56] LABS: Hemoglobin 14.2 g/dl (14.0-18.0); Mean Corpuscular Hemoglobin 31.3 pg (25.0-34.0); Mean Corpuscular Hgb Conc 36.4 g/dL (32.0-36.0); Mean Corpuscular Volume 86.1 fL (80.0-100.0); Mean Platelet Volume 9.6 fL (9.4-12.4); Platelet Count 202 K/uL (130-400); RDW Coefficient of Variation 12.4 % (11.5-14.5); RDW Standard Deviation 38.6 fL (36.4-46.3); Red Blood Count 4.53 M/uL (4.70-6.10); White Blood Count 14.12 K/ul (4.8-10.8)
[2023-05-06 23:08] LABS: BUN Creatinine Ratio 21.9 (10-20); Creatinine Clr Calc Pharmacy 88.1 ml/min; Est GFR (African American) 103.1 ml/min; Potassium 3.9 mmol/L (3.5-5.1)
[2023-05-06 23:11] LABS: Magnesium 2.3 mg/dl (1.7-2.4); Phosphorus 1.3 mg/dl (2.5-4.9)
[2023-05-06] MEDS ORDERED: POTASSIUM PHOS 3 MMOL/1 ML INFUSION IV STA (23:19)
[2023-05-06] MEDS ORDERED: POTASSIUM PHOSPHATE 9 MMOL in SODIUM CHLORIDE 0.9% 250 ML IV ONE (23:45)
[2023-05-07] MEDS: D5W AND 1/2NSS + 20MEQ KCL 20 MEQ/1,000 ML BAG IV SCH ×2 (02:13→07:35)
[2023-05-07 02:31] LABS: Magnesium 2.3 mg/dl (1.7-2.4); Potassium 4.3 mmol/L (3.5-5.1)
[2023-05-07 02:41] LABS: BUN Creatinine Ratio 21.3 (10-20); Creatinine Clr Calc Pharmacy 85.7 ml/min; Est GFR (African American) 99.7 ml/min; Phosphorus 2.3 mg/dl (2.5-4.9)
[2023-05-07 06:35] LABS: Basophils # (auto) 0.01 K/uL (0-0.2); Basophils % (auto) 0.1 %; Hematocrit (blood only) 37.7 % (42.0-52.0); Hemoglobin 13.7 g/dl (14.0-18.0); Immature Granulocytes # (auto) 0.09 K/uL (0.01-0.20); Immature Granulocytes % (auto) 0.8 %; Lymphocytes # (auto) 1.03 K/uL (1.2-3.4); Lymphocytes % (auto) 8.7 %; Mean Corpuscular Hgb Conc 36.3 g/dL (32.0-36.0); Mean Corpuscular Volume 85.3 fL (80.0-100.0); Mean Platelet Volume 9.7 fL (9.4-12.4); Monocytes # (auto) 1.12 K/uL (0.11-0.59); Monocytes % (auto) 9.4 %; Neutrophils # (auto) 9.64 K/uL (1.40-6.50); Platelet Count 175 K/uL (130-400); RDW Coefficient of Variation 12.2 % (11.5-14.5); RDW Standard Deviation 38.4 fL (36.4-46.3); Red Blood Count 4.42 M/uL (4.70-6.10); White Blood Count 11.89 K/ul (4.8-10.8)
[2023-05-07 07:12] LABS: BUN Creatinine Ratio 17.9 (10-20); Creatinine Clr Calc Pharmacy 99.6 ml/min; Est GFR (African American) 116.4 ml/min; Est GFR (Non-African American) 100.4 ml/min; Magnesium 2.3 mg/dl (1.7-2.4); Phosphorus 1.4 mg/dl (2.5-4.9); Potassium 3.8 mmol/L (3.5-5.1)
[2023-05-07] MEDS: INSULIN ASPART PER UNIT CHARGE SC SCH ×5 (08:12→20:25)
[2023-05-07] MEDS ORDERED: SODIUM PHOSPHATE 3 MMOL/1 ML INFUSION IV STA (08:23)
[2023-05-07] MEDS: PANTOprazole 40 MG in SYRINGE 0 ML IV SCH ×2 (08:35→20:32)
[2023-05-07] MEDS: SODIUM CHLORIDE 0.9% 1000ML 1,000 ML IV SCH ×2 (08:43→17:41)
[2023-05-07] MEDS ORDERED: LANTUS PER UNIT CHARGE SQ ONE (09:00)
[2023-05-07] MEDS ORDERED: SODIUM PHOSPHATE 9 MMOL in SODIUM CHLORIDE 0.9% 250 ML IV ONE (09:00)
[2023-05-07] MEDS: ONDANSETRON INJ 2 MG/ML 2 ML VIAL IV PRN (09:07)
[2023-05-07 10:25] LABS: BUN Creatinine Ratio 17.6 (10-20); Calcium 8.1 mg/dl (8.6-10.3); Est GFR (African American) 122.6 ml/min; Est GFR (Non-African American) 105.8 ml/min; Magnesium 2.3 mg/dl (1.7-2.4); Phosphorus 1.6 mg/dl (2.5-4.9); Potassium 3.9 mmol/L (3.5-5.1)
--- NOTE | 2023-05-07 13:43 | Pharmacy Report ---
Pharmacy Glycemic Short Note 2 - Date of Service May 07, 2023 - Glycemic Short BSG Results (Last 24 hours): 05/06/23 05/06/23 05/06/23 14:05 15:26 16:32 Glucose 182 H POC Glucose 181 H 186 H 05/06/23 05/06/23 05/06/23 17:29 17:53 19:33 Glucose 155 H POC Glucose 172 H 143 H 05/06/23 05/06/23 05/06/23 21:30 22:31 22:51 Glucose 122 H POC Glucose 130 H 121 H 05/06/23 05/07/23 05/07/23 23:47 00:59 02:00 Glucose 155 H POC Glucose 126 H 149 H 05/07/23 05/07/23 05/07/23 02:11 04:00 06:02 Glucose POC Glucose 177 H 169 H 174 H 05/07/23 05/07/23 05/07/23 06:15 08:01 09:49 Glucose 175 H 192 H POC Glucose 176 H 05/07/23 05/07/23 05/07/23 10:05 11:23 12:30 Glucose POC Glucose 182 H 288 H 174 H OUTPATIENT ANTIDIABETIC REGIMEN: * Jardiance 10 mg PO daily * Ozempic 0.25 mg SQ weekly * metformin 500 mg PO BIDM * HbA1C = 10.6% (04/24/23) ASSESSMENT: * Mr Vazquez is a 37 y/o M with a PMH of T2DM previously on metformin and sulfonylurea who presents with euglycemic DKA. * Patient started on insulin infusion at 8 units/hr. This eventually decreased to 1 unit/hr overnight with D5 @ 200 mL/hr. * Since labs have normalized and diet resumed, will transition patient to SQ insulin. Lantus 15 units SQ x 1 given. (from insulin drip rate, suspect patient requires ~ 24 units/day while receiving D5@ 200 mL/hr (10 grams/hr). therefore will reduce this to prevent hypoglycemia). * Novolog weight based stress of 2/3. * Overnight checks to ensure BSGs within goal range. PLAN FOR INPATIENT GLYCEMIC CONTROL: * Hold outpatient oral diabetes medications * Basal insulin * Lantus 15 units SQ x 1 then 10-20 units SQ daily * Bolus insulin * NovoLog per scale ACHS or Q6hrs while NPO * Goal Range: Low 110 mg/dL - High 140 mg/dL * Correction Factor: 30 mg/dL/unit * Nutritional / Prandial insulin per carb ratio of 1 unit per 7 grams CHO consumed
--- NOTE | 2023-05-07 13:53 | Hospitalist Progress Note ---
Date of Service May 07, 2023 Assessment & Plan (1) Diabetic ketoacidosis: Plan: Patient admitted to not eating due to nausea after taking his Ozempic Found to have DKA on admission, with elevated anion gap Was started on Insulin drip and IV fluids Anion gap has closed and he has been transitioned to SQ Galrgine and insulin sliding scale Upon discharge, will ask him to discontinue Ozempic for now until he sees his holistic nutritionist He will continue jardiance and Metformin (2) Nausea and vomiting: Plan: Suspect somewhat secondary to Ozempic initially although start multiple new medications at the same time. Now resolved (3) Coffee ground emesis: Plan: could be from retching Continue to monitor Hgb Iv pantoprazole 40mg daily If it recurs, will consult GI (4) Esophagitis: Plan: IV pantoprazole as above (5) Psoriasis: (6) Hypertension: Plan: Stop lisinopril Plan VTE Prophylaxis - low risk Diet - NPO Disposition - continue hospitalization Admission and Anticipated Discharge Date Admission Date: May 06, 2023 Subjective patient seen and examined, feels better this morning Review of Systems Review of Systems: All systems reviewed are negative, apart from the ones contained in the history. Results & Data Results & Data Vital Signs (Past 12 Hours) Vital Signs Temp Pulse Pulse Resp BP BP Pulse Ox 05/07/23 10:59 99.1 F 82 16 119/64 94 05/07/23 08:14 84 05/07/23 07:07 98.6 F 87 16 118/69 95 05/07/23 03:05 98.2 F 87 18 116/67 97 O2 Del Method 05/07/23 10:59 Room Air 05/07/23 08:14 05/07/23 07:07 Room Air 05/07/23 03:05 Room Air PG Care Time/CCT Total # of Minutes Spent Total Time Spent with Patient: Total time spent is greater than 50% in coordination of care (as documented) at patient's floor/unit and/or counseling patient: Coding Level of Care Code 70313 SUB INP/OBS CARE 2/35MIN Diagnoses Diabetic ketoacidosis E11.10 Nausea and vomiting R11.2 Coffee ground emesis K92.0 Esophagitis K20.90 Psoriasis L40.9 Hypertension I10 Time Spent (min) 35
[2023-05-07] MEDS ORDERED: DC IV INSULIN INFUSION 1 EA DEVI ONE (15:00)
[2023-05-08] MEDS: INSULIN ASPART PER UNIT CHARGE SC SCH ×4 (00:10→11:34)
[2023-05-08] MEDS: SODIUM CHLORIDE 0.9% 1000ML 1,000 ML IV SCH (03:41)
[2023-05-08] MEDS: PANTOprazole 40 MG in SYRINGE 0 ML IV SCH (08:19)
[2023-05-08] MEDS ORDERED: LANTUS PER UNIT CHARGE SC SCH (09:00)
--- NOTE | 2023-05-08 11:24 | Pharmacy Report ---
Pharmacy Glycemic Short Note 2 - Date of Service May 08, 2023 - Glycemic Short BSG Results (Last 24 hours): 05/07/23 05/07/23 05/07/23 11:23 12:30 16:21 POC Glucose 288 H 174 H 146 H 05/07/23 05/08/23 05/08/23 20:03 00:04 03:55 POC Glucose 111 H 113 H 103 H 05/08/23 07:15 POC Glucose 120 H OUTPATIENT ANTIDIABETIC REGIMEN: * Jardiance 10 mg PO daily * Ozempic 0.25 mg SQ weekly * metformin 500 mg PO BIDM * HbA1C = 10.6% (04/24/23) ASSESSMENT: 05/08 * Transition off of insulin drip yesterday went smoothly. * AM fasting BSG in goal range. Will limit Lantus to no more than yesterday's dose * Patient seems to be requiring less overall insulin than anticipated, minimal po intake yesterday and now ordered a diet - will loosen Novolog CHO ratio to prevent hypoglycemia 05/07 * Mr Vazquez is a 37 y/o M with a PMH of T2DM previously on metformin and sulfonylurea who presents with euglycemic DKA. * Patient started on insulin infusion at 8 units/hr. This eventually decreased to 1 unit/hr overnight with D5 @ 200 mL/hr. * Since labs have normalized and diet resumed, will transition patient to SQ insulin. Lantus 15 units SQ x 1 given. (from insulin drip rate, suspect patient requires ~ 24 units/day while receiving D5@ 200 mL/hr (10 grams/hr). therefore will reduce this to prevent hypoglycemia). * Novolog weight based stress of 2/3. * Overnight checks to ensure BSGs within goal range. PLAN FOR INPATIENT GLYCEMIC CONTROL: * Hold outpatient oral diabetes medications * Basal insulin * Lantus 0-15 units daily, depending on BSG * Bolus insulin * NovoLog per scale ACHS or Q6hrs while NPO * Goal Range: Low 110 mg/dL - High 140 mg/dL * Correction Factor: 30 mg/dL/unit * Nutritional / Prandial insulin per carb ratio of 1 unit per 9 grams CHO consumed
--- NOTE | 2023-05-08 12:15 | Discharge Summary ---
Date of Service May 08, 2023 Admission HPI Per Admitting Provider Valentino Vazquez is a 37 year old male who presents to the ER with nausea and vomiting. He reports falling off the wagon regarding his diabetes and general medical treatments. HbA1C 10.6 on April 24. He was previous diagnosed with diabetes and treated with metformin. Last weekend he started back on all his current medications at the same time. He took Ozempic for the first time on Monday. On Monday he started having nausea and vomiting and hasn't been able to keep much else down since then. Now having coffee ground vomiting and bile therefore decided to come to the ER today. He denies any abdominal pain or change in bowel habits. He continued to take Farxiga up until today. Principal Diagnosis DKA Discharge Exam The patient is awake, alert and oriented 3, well developed and well nourished, normocephalic and atraumatic, lying in bed and in no acute distress. HEENT--PERRL, EOMI, mucous membranes and oropharynx mildly dry Neck--supple. No JVD. No bruits. Thyroid normal, trachea midline, no adenopathy. Heart--normal S1 and S2. No murmurs, rubs or gallops. Lungs--clear bilaterally, no respiratory distress, no accessory muscle use. Abdomen--normal bowel sounds and soft. Mild epigastric and left sided abdominal pain Extremities--no cyanosis or clubbing. No edema. Dermatologic--normal skin turgor, normal color, no abnormal lymph nodes, no rash. Neurologic--cranial nerves II through XII grossly intact. Rheumatologic--normal range of motion. Psychiatric--normal affect. Discharge Data Allergies Allergy/AdvReac Type Severity Reaction Status Date / Time No Known Allergies Allergy Mild Unverified 05/06/23 13:28 Consultations 05/06/23 13:19 ED Decision to Admit Stat Ordered Studies 05/06/23 11:28 CT stones [CT abd pelvis wo con] Stat Hospital Course (1) Diabetic ketoacidosis: Patient admitted to not eating due to nausea after taking his Ozempic Found to have DKA on admission, with elevated anion gap Was started on Insulin drip and IV fluids Anion gap has closed and he has been transitioned to SQ Galrgine and insulin sliding scale Upon discharge, will ask him to discontinue Ozempic for now until he sees his solid waste analyst He will continue jardiance and Metformin at home (2) Nausea and vomiting: Suspect somewhat secondary to Ozempic initially although start multiple new medications at the same time. Now resolved (3) Coffee ground emesis: could be from retching Continue to monitor Hgb Iv pantoprazole 40mg daily If it recurs, will consult GI (4) Esophagitis: IV pantoprazole as above (5) Psoriasis: (6) Hypertension: Stop lisinopril Plan VTE Prophylaxis - low risk Diet - NPO Disposition - continue hospitalization Total Time Total Time Spent Total Time Spent (In Minutes): 35 Discharge Plan Discharge Items Patient Disposition: Home - Self-Care Reason For Visit: DKA Discharge Diagnosis: DKA Activity: Resume your previous activity Non-emergency contact: Primary Care Provider Call non-emergency contact if: you have any medication questions Follow-up/Referrals: Lance Shaikh CRNP [Primary Care Provider] - Nadja Mar PA-C [Physician Transportation Escort] - 05/16/23 10:20 am Diet: Carb Consistent or DM2 Addtl Attending Provider Instructions: please make appointment to follow up with your Diabetes doctor. Dont take Ozempic for now Pending Studies at Discharge: No Stand-Alone Forms: My Smart GPS Backpack, Smoking Cessation Medications and DC Order Prescriptions: Continued Jardiance 10 mg tablet 10 mg PO DAILY Qty: 30 2RF atorvastatin 20 mg tablet 20 mg PO QPM Qty: 90 2RF lisinopril 5 mg tablet 5 mg PO DAILY Qty: 30 2RF metformin 500 mg tablet extended release 24 hr 500 mg PO BID Qty: 60 2RF (DME) lancets [FreeStyle Lancets] 28 gauge misc See Rx Instructions .ROUTE Qty: 100 0RF Rx Instructions: As directed (DME) blood-glucose meter Kit See Rx Instructions .ROUTE .MEDSUPPLY Qty: 1 0RF Rx Instructions: As directed daily and PRN (DME) FreeStyle Test Strip See Rx Instructions .Route Qty: 100 5RF Rx Instructions: As directed daily and PRN Discontinued Ozempic 0.25 mg or 0.5 mg (2 mg/3 mL) pen injector 0.25 mg subcut .SUNDAYS Rx Instructions: 0.25 mg subcutaneously once every 7 days at any time of day. After 4 weeks increase to 0.5 mg subcutaneously once weekly. Discharge Orders: Discharge Order (Routine); Ordered 05/08/23 Ordered By: Trev Bull Admission Data Admit Date/Time: 05/06/23 14:11 Attending Provider: Trev Bull Admit Provider: Troy Jones Primary Care Provider: Lance Shaikh Other Providers: Troy Jones Other Interventions: Discharge Summary Assessment (RN) Last Done: 05/08/23 10:48 Coding Level of Care Code 44692 INP/OBS DISCH >30 MIN Diagnoses Diabetic ketoacidosis E11.10 Nausea and vomiting R11.2 Coffee ground emesis K92.0 Esophagitis K20.90 Psoriasis L40.9 Hypertension I10 Time Spent (min) 35
== END 2023-05-08 12:15 | disposition home or self-care (01) | DRG 638 ==
LOC: ED 09:31 → SUATTDRO 14:11 → 2E 14:11